=== PATIENT | female | born 1995 | race Two or more races ===

== ENCOUNTER 2023-11-08 21:12 | Emergency (ER) | payer OTHER ==
[~2023-11-08] VITALS: Ht 157.5 cm; Wt 44.0 kg
[2023-11-08] MEDS ORDERED: ACETAMINOPHEN 500 MG GEL..CAP PO ONE (22:00)
[2023-11-08 22:25] LABS: HEMATOCRIT 39.1 % (36.0-45.00); HEMOGLOBIN 13.2 g/dL (12.0-15.00); MEAN CELL VOLUME 93.7 fL (80.00-100.00); MEAN CORPUSCULAR HEMOGLOBIN 31.7 pg (27.00-32.0); MEAN CORPUSCULAR HGB CONC 33.8 g/dl (32.0-36.0); PLATELET COUNT 173 K/uL (150-450); RED BLOOD COUNT 4.17 M/uL (4.00-6.00); RED CELL DISTRIBUTION WIDTH 12.4 % (11.5-14.5)
[2023-11-08 22:37] LABS: URINE APPEARANCE Cloudy; URINE BILIRRUBIN Negative (NEGATIVE); URINE BLOOD Moderate; URINE COLOR Yellow; URINE GLUCOSE Negative (NEGATIVE); URINE LEUKOCYTE Small; URINE NITRATE Negative; URINE PROTEIN Trace (NEGATIVE)
[2023-11-08 22:41] LABS: URINE BACTERIA 3796.3 uL (0.0-1933); URINE EPITHELIAL CELLS 51.1 uL (0.0-38.8); URINE RBC 172.6 uL (0.0-20.8); URINE WBC 127.3 uL (0.0-23.2)
== END 2023-11-08 23:19 | disposition home or self-care (01) ==
LOC: ER 21:13
PROVIDERS: General Practice
DX: J11.1 Influenza due to unidentified influenza virus with other respiratory manifestations (principal); Z91.018 Allergy to other foods; K29.70 Gastritis, unspecified, without bleeding; Z20.822 Contact with and (suspected) exposure to COVID-19

== ENCOUNTER 2024-04-15 06:04 | Emergency (ER) | payer OTHER ==
[~2024-04-15] VITALS: Ht 157.5 cm; Wt 42.6 kg
[~2024-04-15 06:04] MED LIST: PEPCID AC10 MG; PROTONIX20 MG
[2024-04-15] MEDS ORDERED: KETOROLAC TROMETHAMINE 60 MG VIAL IM STA (06:39)
[2024-04-15] MEDS ORDERED: METOCLOPRAMIDE HCL 5 MG/ML VIAL IM STA (06:40)
[2024-04-15] MEDS ORDERED: FAMOtidine 10 MG/ML (4ML VIAL) IV PUSH STA (06:41)
[2024-04-15] MEDS ORDERED: KETOROLAC TROMETHAMINE 60 MG VIAL IM ONE (07:16)
[2024-04-15] MEDS ORDERED: FAMOTIDINE/PF 20 MG/2 ML VIAL ONE (07:16)
[2024-04-15] MEDS ORDERED: METOCLOPRAMIDE HCL 5 MG/ML VIAL ONE (07:16)
== END 2024-04-15 09:16 | disposition home or self-care (01) ==
LOC: ER 06:05
DX: K29.70 Gastritis, unspecified, without bleeding (principal); N94.6 Dysmenorrhea, unspecified; R11.10 Vomiting, unspecified; Z91.018 Allergy to other foods

== ENCOUNTER 2024-07-27 10:47 | Emergency (ER) | payer OTHER ==
[~2024-07-27] VITALS: Ht 154.9 cm; Wt 45.4 kg
[2024-07-27 11:41] VITALS: BP 96/55; O2SAT 97
[2024-07-27] MEDS ORDERED: NASAL MIST126 ML (11:45)
[2024-07-27] MEDS ORDERED: KETOROLAC TROMETHAMINE 30 MG VIAL IM STA (12:19)
[2024-07-27] MEDS ORDERED: KETOROLAC TROMETHAMINE 30 MG VIAL IV ONE (12:30)
[2024-07-27 12:59] LABS: HEMATOCRIT 41.1 % (36.0-45.00); HEMOGLOBIN 13.6 g/dL (12.0-15.00); MEAN CELL VOLUME 92.4 fL (80.00-100.00); MEAN CORPUSCULAR HEMOGLOBIN 30.4 pg (27.00-32.0); PLATELET COUNT 238 K/uL (150-450); RED BLOOD COUNT 4.45 M/uL (4.00-6.00); RED CELL DISTRIBUTION WIDTH 11.8 % (11.5-14.5)
[2024-07-27 13:42] LABS: CALCIUM 9.1 mg/dL (8.5-10.1); CREATININE SERUM 0.75 mg/dL (0.55-1.02); GFR 92.69; POTASSIUM 3.83 mEq/L (3.5-5.1)
== END 2024-07-27 17:44 | disposition home or self-care (01) ==
LOC: ER 10:47
PROVIDERS: General Practice
DX: N80.9 Endometriosis, unspecified (principal); R10.2 Pelvic and perineal pain; R11.10 Vomiting, unspecified; Z91.018 Allergy to other foods

== ENCOUNTER 2025-04-17 17:58 | Emergency (ER) | payer OTHER ==
[~2025-04-17] VITALS: Ht 157.5 cm; Wt 44.9 kg
[~2025-04-17 17:58] MED LIST changes: +NASAL MIST126 ML
[2025-04-17 20:51] LABS: BASO % 0.2 % (0.1-1.2); EOS # 0.03 (0.04-0.54); EOS % 0.2 % (0.7-7.0); LYMPH # 1.15 (1.18-3.74); LYMPH % 9.3 % (19.3-53.1); MEAN PLATELET VOLUME 9.70 fl (9.4-12.4); MONO # 0.72 (0.24-0.82); MONO % 5.8 % (4.7-12.5); NEUT # 10.39 (1.56-6.13); NEUT % 84.2 % (34.0-71.1); RED CELL DISTRIBUTION WIDTH 11.6 % (11.6-14.4)
== END 2025-04-17 22:14 | disposition home or self-care (01) ==
LOC: ER 17:58
PROVIDERS: Emergency Medicine
DX: N94.6 Dysmenorrhea, unspecified (principal); Z91.018 Allergy to other foods

== ENCOUNTER 2025-05-12 08:49 | Emergency (ER) | payer OTHER ==
[~2025-05-12] VITALS: Ht 157.5 cm; Wt 45.4 kg
[2025-05-12] MEDS ORDERED: FAMOTIDINE/PF 20 MG in 0.9 % SODIUM CHLORIDE 8 ML IV PUSH STA (09:10)
[2025-05-12] MEDS ORDERED: FAMOTIDINE/PF 20 MG/2 ML VIAL ONE (09:13)
[2025-05-12] MEDS ORDERED: KETOROLAC TROMETHAMINE 30 MG VIAL ONE (09:14)
[2025-05-12] MEDS ORDERED: KETOROLAC TROMETHAMINE 30 MG VIAL IV ONE (09:15)
== END 2025-05-12 13:13 | disposition home or self-care (01) ==
LOC: ER 08:49
DX: N94.6 Dysmenorrhea, unspecified (principal); Z91.018 Allergy to other foods

== ENCOUNTER 2025-06-15 05:34 | Emergency (ER) | payer OTHER ==
[~2025-06-15] VITALS: Ht 152.4 cm; Wt 45.4 kg
[2025-06-15] MEDS ORDERED: ACID REDUCER20 M1 (05:50)
[2025-06-15] MEDS ORDERED: PROMETHAZINE HCL 50 MG/ML AMPUL IM STA (06:21)
[2025-06-15] MEDS ORDERED: KETOROLAC TROMETHAMINE 30 MG VIAL IV STA (06:23)
[2025-06-15] MEDS ORDERED: PROMETHAZINE HCL 50 MG/ML AMPUL IM ONE (06:24)
[2025-06-15] MEDS ORDERED: KETOROLAC TROMETHAMINE 30 MG VIAL ONE (06:24)
[2025-06-15] MEDS ORDERED: 0.9 % SODIUM CHLORIDE 1,000 ML IV ONE (06:30)
[2025-06-15] MEDS ORDERED: BARIUM SULFATE 450 ML ORAL.SUSP PO ONE (06:36)
[2025-06-15 07:55] LABS: BASO % 0.1 % (0.1-1.2); EOS # 0.01 (0.04-0.54); EOS % 0.1 % (0.7-7.0); LYMPH # 0.90 (1.18-3.74); LYMPH % 7.2 % (19.3-53.1); MEAN PLATELET VOLUME 10.10 fl (9.4-12.4); MONO # 0.72 (0.24-0.82); MONO % 5.8 % (4.7-12.5); NEUT # 10.85 (1.56-6.13); NEUT % 86.6 % (34.0-71.1); RED CELL DISTRIBUTION WIDTH 11.1 % (11.6-14.4)
[2025-06-15 08:12] LABS: INR 1.05
[2025-06-15 08:36] LABS: ALT/SGPT 27 U/L (12-78); AST/SGOT 18 U/L (15-37); BILIRUBIN TOTAL 0.70 mg/dL (0.3-1.2); BUN CREA RATIO 17 (7.0-25.0); CREATININE SERUM 0.75 mg/dL (0.55-1.02); GFR 92.69; GLOBULINA 3.3 G/DL (2.4-3.5); GLUCOSE FASTING 87 mg/dL (65-100); OSMOLALITY SERUM 281 MOSM/KG (275-295)
[2025-06-15 08:39] LABS: HCG QUANTITATIVE < 1 mUI/mL (1-3)
[2025-06-15 08:53] LABS: URINE APPEARANCE Clear; URINE BILIRRUBIN Negative (NEGATIVE); URINE BLOOD Small; URINE COLOR Yellow; URINE GLUCOSE Negative (NEGATIVE); URINE LEUKOCYTE Small; URINE NITRATE Negative; URINE PROTEIN Negative (NEGATIVE); URINE UROBILINOGEN 0.2 E.U./dl
[2025-06-15 08:58] LABS: URINE BACTERIA 2401.0 uL (0.0-1933); URINE CAST 0.29 uL (0.0-1.40); URINE EPITHELIAL CELLS 43.8 uL (0.0-38.8); URINE KETONE 40 (NEGATIVE); URINE RBC 46.6 uL (0.0-20.8); URINE WBC 100.4 uL (0.0-23.2)
[2025-06-15] MEDS ORDERED: FAMOTIDINE/PF 20 MG/2 ML VIAL IV PUSH ONE (10:30)
[2025-06-15] MEDS ORDERED: MACROBID 100 M100 MG PO (12:21)
[2025-06-15] MEDS ORDERED: IBU400 MG PO (12:21)
[2025-06-15] MEDS ORDERED: PYRIDIUM200 MG PO (12:21)
[2025-06-15] MEDS ORDERED: TAMS0.4C PO (12:21)
== END 2025-06-15 12:42 | disposition home or self-care (01) ==
LOC: ER 05:35
PROVIDERS: General Practice
DX: N20.1 Calculus of ureter (principal); R10.30 Lower abdominal pain, unspecified; Z91.018 Allergy to other foods